=== PATIENT | male | born 1970 ===

== ENCOUNTER 2024-12-03 10:03 | Outpatient (CLI) | payer OTHER, SELFPAY ==
[2024-12-03 10:59] LABS: Abs Immature Grans 0.01 10^3/uL (0.0-0.06); Absolute Basophil Count 0.13 10^3/uL (0.0-0.2); Absolute Eosinophil Count 0.32 10^3/uL (0.0-0.7); Absolute Lymphocyte Count 4.12 10^3/uL (1.2-3.4); Absolute Monocyte Count 0.69 10^3/uL (0.1-0.8); Absolute Neutrophil Count 2.72 10^3/uL (1.2-6.7); Basophils % 1.6 %; HCT 45.5 % (40.0-50.0); Immature Grans % 0.1 %; Lymphocytes % 51.6 %; MCH 31.1 pg (27.0-33.0); MCHC 35.2 % (32.0-36.0); MCV 88 fL (80-95); MPV 9.1 fL (8.0-11.0); Monocytes % 8.6 %; Neutrophils % 34.1 %; Platelet Count 426 10^3/uL (130-400); RBC 5.15 10^6/uL (4.36-5.78); RDW 13.8 % (11.8-14.1); RDW-SD 44.9 fL; WBC 7.99 10^3/uL (4.4-10.8)
[2024-12-03 13:00] LABS: Calculated LDL 86 mg/dL (<100); Cholesterol 173 mg/dL (<200); HDL Cholesterol 45 mg/dL (>or=40); TSH 0.52 uIU/mL (0.36-3.74); Triglyceride 214 mg/dL (<150)
[2024-12-03 13:33] LABS: FREE T4 1.02 ng/dL (0.76-1.46)
== END 2024-12-03 10:04 | disposition home or self-care (01) ==
PROVIDERS: PCP Nurse Practitioner Family; Visit Provider Nurse Practitioner Family
DX: I25.10 Atherosclerotic heart disease of native coronary artery without angina pectoris (principal); E78.5 Hyperlipidemia, unspecified; E03.9 Hypothyroidism, unspecified
CPT/HCPCS: 36415; 80061; 84439; 84443; 85025

== ENCOUNTER → 2025-04-29 02:00 | Outpatient (CLI) | payer OTHER, SELFPAY ==
--- NOTE | 2025-04-29 07:30 | DI.US_ITS ---
APPROVED REPORT EXAM: Comprehensive 2D, Doppler, and color-flow Echocardiogram Patient Location: Out-Patient Cardiopulmonary Technician And Eeg Tech: Shayla Fuller RDCS (AE) Indications: S/P AVR Edward Other Information Study Quality: Adequate. Technically limited study due to body habitus. Conclusion Normal left ventricular wall thickness and chamber size. Ejection fraction is 50 to 55%. Septal motion suggests a conduction delay Normal right ventricular size and function Both atria are normal in size There is a bioprosthetic aortic valve. Mean gradient is 6 mmHg. There is no aortic regurgitation Mild mitral and tricuspid regurgitation Estimated right ventricular systolic pressure is 30 mmHg Wall motion Left Ventricle The left ventricle is normal size. The left ventricular systolic function is normal. The left ventricular ejection fraction is within the normal range. There is normal left ventricular wall thickness. Septal motion suggests IVCDThe basal anteroseptal wall is mildly hypokinetic. The basal inferoseptal wall is mildly hypokinetic. The mid anteroseptal wall is mildly hypokinetic. The mid inferoseptal wall is mildly hypokinetic. The basal anteroseptal wall is mildly hypokinetic. The basal inferoseptal wall is mildly hypokinetic. The mid anteroseptal wall is mildly hypokinetic. The mid inferoseptal wall is mildly hypokinetic. The basal anteroseptal wall is mildly hypokinetic. The basal inferoseptal wall is mildly hypokinetic. The mid anteroseptal wall is mildly hypokinetic. The mid inferoseptal wall is mildly hypokinetic. There is no ventricular septal defect visualized. LVEF is 50-55%. Right Ventricle Right ventricle is grossly normal in size. Right ventricular systolic function is grossly normal. Atria The left atrium size is normal. The right atrium size is normal. The interatrial septum is intact with no evidence for an atrial septal defect. Aortic Valve Mean gradient is 6 mmHg No aortic regurgitation is present. Bioprosthetic aortic valve is present. Mitral Valve The mitral valve is normal in structure. No evidence of mitral valve stenosis. Mild mitral regurgitation. Tricuspid Valve The tricuspid valve is normal in structure. There is no tricuspid valve stenosis. Mild tricuspid regurgitation. The RVSP is 30.4mmHg. Pulmonic Valve The pulmonary valve is normal in structure. There is no pulmonic valvular stenosis. There is no pulmonic valvular regurgitation. Great Vessels The aortic root is normal in size. Ascending aorta is not well visualized. Aortic arch is normal in caliber. IVC is normal in size and collapses >50% with inspiration. Pericardium There is no pericardial effusion. 2D Dimensions IVSD d PLAX 1.21 cm M: 0.6-1.2 Ao Root d 2.37 cm M: 3.1 - 3.7 LVPW d PLAX 1.20 cm M: 0.6 - 1.2 LVID d PLAX 4.20 cm M: 4.2 - 5.8 LVDs 3.12 cm M: 2.5 - 4.0 LV EF Teichholz 50.0 % FS 25.06 % LV EDV (Teich) 76.9 mL LV ESV (Teich) 38.5 mL M-Mode TAPSE 1.76 cm (M/F) >1.7 Auto EF LV EDV A4C 83.5 mL LV EDV A2C 119.2 mL LV EDV BP 100.2 mL LV ESV A4C 47.5 mL LV ESV A2C 66.9 mL LV ESV BP 54.7 mL LVEF(%) A4C 43.2 % LVEF(%) A2C 43.8 % LVEF(%) BP 45.4 % LV SV A4C 36.1 ml LV SV A2C 52.2 ml LV SV BP 45.5 ml LV CO A4C 3.8 L/min LV CO A2C 5.5 L/min LV CO BP 4.6 L/min HR A4C 104.96 BPM HR A2C 104.66 BPM LV EDV Index (BP) LV Strain Long Pk Overal Avg (s) 10.44 LA Volume LA Length A4C 4.1 cm LA Length A2C 4.4 cm LA Area A4C s 13.11 cm2 LA Area A2C s 16.81 cm2 LA Vol A4C A-L 35.83 mL LA Vol A2C A-L 54.48 mL LA Vol Biplane A-L 45.9 mL LA Vol/BSA A4C A-L LA Vol/BSA A2C A-L LA Vol/BSA BP A-L 21.2 mL/m2 LA Vol A4C MOD 32.8 mL LA Vol A2C MOD 50.7 mL LA Vol BP MOD 42.4 mL RA Volume RA Area A4C 11.6 cm2 RA ESV A4C (A-L) 30.8mL RA Vol/BSA A4C A-L RA Length A4C 3.7 cm RA ESV A4C (MOD) 28.8mL LV Diastology MV E Vmax 1.15 (0.4-1.3 m/s) Aortic Valve AoV Vmax 1.65 m/s LVOT Vmax 1.02 m/s AoV Peak Grad 10.9 mmHg LVOT Peak Grad 4.1 mmHg AoV Area (Vmax) 1.90 cm2 LVOT VTI 0.177 m AoV VTI 0.268 m LVOT Mean Grad 2.4 mmHg AoV Mean Ji. 1.19 m/s LVOT SV 54.48 mL AoV Mean Grad 6.3 mmHg LVOT Diam s 1.95 cm AoV Area (VTI) 2.03 cm2 AV Regurg Peak Gr. 10.89 mmHg Velocity Ratio 0.62 Mitral Valve MV Area PHT 3.99 cm2 Pulmonary Valve PV Vmax 2.10 (0.5-1.5 m/s) RVOT Vmax 0.85 m/s PV Peak Grad 17.6 mmHg RVOT Peak Gr. 2.9 mmHg PV Mean Ji 1.59 m/s RVOT VTI 0.159 m PV Mean Grad 11.1 mmHg RVOT Mean Gr. 1.6 mmHg Tricuspid Valve RA Pressure 3.00 mmHg TR Vmax 2.62 m/s TV S' 0.08 m/s TR Peak Grad 27.4 mmHg RVSP (TR) 30.4 mmHg
== END ==
LOC: DI 02:00
PROVIDERS: PCP Nurse Practitioner Family; Visit Provider Internal Medicine Interventional Cardiology
DX: Z95.2 Presence of prosthetic heart valve (principal); I08.1 Rheumatic disorders of both mitral and tricuspid valves
CPT/HCPCS: 93306